=== PATIENT | male | born 1940 | race Caucasian/White ===

== ENCOUNTER 2024-05-05 12:13 | Inpatient (IN) ==
--- NOTE | 2024-04-30 13:20 | Anesthesiology Consultation ---
Date of Service April 30, 2024 Assessment & Plan (1) Encounter for pre-operative examination: - Infectious disease screening: Per assessment on 04/30/24- No known recent infectious disease contacts or current infectious disease symptoms. - ASA/Plavix instructions per surgeon/prescriber - PCP visit (04/29/24): "Patient is medically cleared for intended procedure" - Patient acceptable risk for surgery pending upcoming cardiology visit ([facility], appt 05/04). Chart Review Chart Review: Patient NOT seen in Pre Admission Testing History Surgery Operation Date: 05/05/24 13:25 Proposed Procedures p L3-L4 Decompression and Fusion with Spinal Cord Monitoring - Guanaco Leung, Height/Weight Height: 5 ft 9.5 in Weight: 69.853 kg Allergies Allergy/AdvReac Type Severity Reaction Status Date / Time No Known Allergies Allergy Verified 04/30/24 11:40 Medications Home Medications Medication Instructions Recorded Confirmed Last Taken ascorbic acid (vitamin C) 500 mg 500 mg PO DAILY 04/30/24 04/30/24 Unknown chewable tablet aspirin 81 mg tablet 81 mg PO DAILY 04/30/24 04/30/24 Unknown carvedilol 25 mg tablet 25 mg PO BID 04/30/24 04/30/24 Unknown cholecalciferol (vitamin D3) 125 125 mcg PO BID 04/30/24 04/30/24 Unknown mcg (5,000 unit) tablet (Vitamin D3) clopidogrel 75 mg tablet (Plavix) 75 mg PO DAILY 04/30/24 04/30/24 Unknown cyclobenzaprine 5 mg tablet 5 mg PO TID PRN Muscle Spasms 04/30/24 04/30/24 Unknown lisinopril 20 mg tablet 20 mg PO BID 04/30/24 04/30/24 Unknown melatonin 5 mg tablet 5 mg PO HS 04/30/24 04/30/24 Unknown methylprednisolone 4 mg tablet 4 mg PO DAILY 04/30/24 04/30/24 Unknown [id number]-ch-[id number] 300 mcg-K 60 1 tab PO DAILY 04/30/24 04/30/24 Unknown mcg-lycop 600 mcg-lutein 300 mcg tablet (Centrum Silver Men) peg 400-propylene glycol 0.4 %-0.3 1 drp ophthalmic (eye) TID PRN Dry 04/30/24 04/30/24 Unknown % eye drops (Systane Ultra) Eye(S) pravastatin 20 mg tablet 20 mg PO DAILY 04/30/24 04/30/24 Unknown psyllium husk 3.4 gram/5.4 gram 1 tbsp PO BID 04/30/24 04/30/24 Unknown oral powder (Metamucil) Past Medical History Medical History Dry eyes History of [place] (myocardial infarction) stent x1 (2012) Follows with [facility] History of TIA (transient ischemic attack) Remote hx 10+ years ago Hypertension Lumbar radiculopathy Uses cane Past Surgical History Surgical History History of bilateral cataract extraction History of cardiac catheterization (2012) x1 stent History of colonoscopy History of tonsillectomy History of transurethral resection of prostate Social History Smoking Status: Former smoker Do You Dip or Chew Tobacco: No Smoking End Date: 1976 Hx Alcohol Use: No Hx Substance Use: No substance use type: does not use Lab Results Anesthesia Preop Results Results Anesthesia Widget: WBC 15.53 K/ul (4.8-10.8) H 04/29/24 Hgb 16.1 g/dl (14.0-18.0) 04/29/24 Hct 46.2 % (42.0-52.0) 04/29/24 Plt 335 K/uL (130-400) 04/29/24 Na 131 mmol/L (136-145) L 04/29/24 K 4.0 mmol/L (3.5-5.1) 04/29/24 Cl 97 mmol/L (98-107) L 04/29/24 CO2 30 mmol/L (21-32) 04/29/24 BUN 23 mg/dl (6-23) 04/29/24 Creat 0.67 mg/dl (0.6-1.4) 04/29/24 Glucose Level 127 mg/dl (70-99(Fasting)) H 04/29/24 PT 10.8 Seconds (9.0-12.0) 04/29/24 PTT 28 Seconds (21-31) 04/29/24 INR 1.0 (0.9-1.1) 04/29/24 Urine Color Yellow 04/29/24 Urine Appearance Clear (Clear) 04/29/24 Urine pH 6.0 (4.5-7.5) 04/29/24 Urine Specific [place] 1.021 (1.000-1.030) 04/29/24 Urine Protein Trace (Negative) H 04/29/24 Urine Glucose (UA) Negative (Negative) 04/29/24 Urine Ketones Trace (Negative) H 04/29/24 Urine Blood 1+ (Negative) H 04/29/24 Urine Nitrite Negative (Negative) 04/29/24 Urine Bilirubin Negative (Negative) 04/29/24 Urine Urobilinogen Negative (Negative) 04/29/24 Urine Leukocyte Esterase 1+ (Negative) H 04/29/24 Urine WBC (Auto) 6-10 /hpf (0-5) H 04/29/24 Urine RBC (Auto) >20 /hpf (0-2) H 04/29/24 Urine Hyaline Casts (Auto) 0-2 /lpf (0-2) 04/29/24 Urine Epithelial Cells (Auto) 0-2 /hpf (0-2) 04/29/24 Urine Bacteria (Auto) None Seen (None Seen) 04/29/24 Blood Type O Positive 04/29/24 Antibody Screen NEGATIVE 04/29/24 Testing Laboratory Results Urine culture (04/29/24): no growth (preliminary) Electrocardiogram Date: 04/29/24 SB at 57bpm. "Otherwise normal ECG" Chest X-Ray Date: 04/29/24 FINDINGS: Heart size and pulmonary vasculature are normal. No effusion or consolidation. IMPRESSION: No acute findings.
[~2024-05-05 12:13] MED LIST: DEXAMETHASONE SOD INJ 4 MG/ML VIAL ONE; LIDOCAINE 2% 2 ML VIAL/AMP(20MG/ML) INFIL ONE; ONDANSETRON INJ 2 MG/ML 2 ML VIAL ONE; PROPOFOL IV EMULSION 10 MG/ML 20 ML VIAL IV ONE; ROCURONIUM BROMIDE 10 MG/ML 5 ML VIAL IV ONE; fentaNYL citrate PF 100 MCG/2 ML VIAL ONE
[2024-05-05] MEDS: LACTATED RINGER'S 1,000 ML IV SCH (12:23)
[2024-05-05] MEDS: GABAPENTIN 300 MG CAP PO SCH (12:24)
[2024-05-05] MEDS: CeleBREX 200 MG CAP PO SCH (12:24)
[2024-05-05] MEDS: ACETAMINOPHEN 500 MG TAB PO SCH (12:24)
[2024-05-05] MEDS: LR 60ML/HR IV SCH (12:24)
[2024-05-05] MEDS ORDERED: ePHEDrine sulfate 50 MG/ML AMP IV PRN (12:29)
[2024-05-05] MEDS ORDERED: ATROPINE SULFATE 0.1 MG/ML 10ML SYR IV PRN (12:29)
[2024-05-05] MEDS ORDERED: fentaNYL citrate PF 100 MCG/2 ML VIAL IV PRN (12:29)
[2024-05-05] MEDS ORDERED: ONDANSETRON INJ 2 MG/ML 2 ML VIAL IV PRN ×2 (12:29→16:18)
[2024-05-05] MEDS ORDERED: HYDROmorphone INJ 1 MG/ML SYRINGE IV PRN ×2 (12:29→16:18)
--- NOTE | 2024-05-05 12:45 | History & Physical Bridge Note ---
Date of Service May 05, 2024 History & Physical Bridge Note I have examined the patient, reviewed the History & Physical and in the interval since the performance of the History & Physical I have noted the following changes of clinical significance: no changes noted
--- NOTE | 2024-05-05 12:46 | History & Physical Report ---
Date of Service May 05, 2024 Assessment & Plan (1) Lumbar disc herniation with radiculopathy: Plan: L3-L4 decompression and fusion History of Present Illness Chief Complaint: Back and leg pain Primary Care Provider: TAWANA Montano This is an 83-year-old male who presents with severe back and leg pain after failing course of nonoperative care is here for surgical invention. Allergies Allergy/AdvReac Type Severity Reaction Status Date / Time No Known Allergies Allergy Verified 05/05/24 12:13 Home Medications Medication Instructions Recorded Confirmed Type ascorbic acid (vitamin C) 500 mg 500 mg PO DAILY 04/30/24 05/05/24 History chewable tablet aspirin 81 mg tablet 81 mg PO DAILY 04/30/24 05/05/24 History carvedilol 25 mg tablet 25 mg PO BID 04/30/24 05/05/24 History cholecalciferol (vitamin D3) 125 125 mcg PO BID 04/30/24 05/05/24 History mcg (5,000 unit) tablet (Vitamin D3) clopidogrel 75 mg tablet (Plavix) 75 mg PO DAILY 04/30/24 05/05/24 History cyclobenzaprine 5 mg tablet 5 mg PO TID PRN Muscle Spasms 04/30/24 05/05/24 History lisinopril 20 mg tablet 20 mg PO BID 04/30/24 05/05/24 History melatonin 5 mg tablet 5 mg PO HS 04/30/24 05/05/24 History methylprednisolone 4 mg tablet 4 mg PO DAILY 04/30/24 05/05/24 History [id number]-[id number]-mfham 300 mcg-K 60 1 tab PO DAILY 04/30/24 05/05/24 History mcg-lycop 600 mcg-lutein 300 mcg tablet (Centrum Silver Men) peg 400-propylene glycol 0.4 %-0.3 1 drp ophthalmic (eye) TID PRN Dry 04/30/24 05/05/24 History % eye drops (Systane Ultra) Eye(S) pravastatin 20 mg tablet 20 mg PO DAILY 04/30/24 05/05/24 History psyllium husk 3.4 gram/5.4 gram 1 tbsp PO BID 04/30/24 05/05/24 History oral powder (Metamucil) Past Med/Surg History Problem List (Updated 05/05/24 @ 12:46 by Guanaco M Xochitl, DO) Lumbar disc herniation with radiculopathy Encounter for pre-operative examination Medical History Dry eyes History of [place] (myocardial infarction) stent x1 (2012) Follows with [facility] History of TIA (transient ischemic attack) Remote hx 10+ years ago Hypertension Lumbar radiculopathy Uses cane Surgical History History of bilateral cataract extraction History of cardiac catheterization (2012) x1 stent History of colonoscopy History of tonsillectomy History of transurethral resection of prostate Social History Smoking Status: Former smoker Tobacco Type: Cigarettes Smoking End Date: 1976; Second Hand Exposure: No; Do You Dip or Chew Tobacco: No; Tobacco Cessation Education Requested by Patient: No Hx Alcohol Use: No Hx Substance Use: No Preferred Language: Mohawk Communication Ability: Effective Client Services Manager Required: No Beliefs That Will Affect Care: None Current Living Situation: Spouse Other Information That Helps Us Care for You: No Feels Safe at Home: Yes Safety Concerns: Feels Safe At This Time Assistive Devices: Cane, Glasses and Other Assistive Devices Comment: Upper/Lower Partial Physical Exam Physical Exam: Patient is alert and oriented Heart regular rhythm Lungs clear Results & Data Results & Data Vital Signs (Past 12 Hours) Vital Signs Temp Pulse Resp BP Pulse Ox O2 Del Method 05/05/24 12:07 36.7 C 66 20 171/87 H 98 Room Air
[2024-05-05] MEDS: ceFAZolin 2000MG 2,000 MG/15 ML SYR IV SCH (13:13)
[2024-05-05] MEDS ORDERED: PHENYLEPHRINE 100MCG/ML 5ML SYR ONE (13:31)
[2024-05-05] MEDS ORDERED: SUGAMMADEX SODIUM 200 MG/2 ML VIAL IV ONE (13:49)
[2024-05-05] MEDS: BUPIVACAINE/EPINEPHRINE 0.25% 1:200,000 30 ML VIAL ONE (13:51)
[2024-05-05] MEDS: ceFAZolin 330 MG/ML 1 GM VIAL ONE (13:51)
[2024-05-05] MEDS: FLOSEAL HEMOSTATIC MATRIX 10ML TOP ONE (14:25)
--- NOTE | 2024-05-05 14:28 | Operative Report ---
Post Operative Report Pre & Post Diagnosis Operation Date: 05/05/24 13:25 Pre-Op Diagnosis: #1 lumbar Disc Herniation with Radiculopathy #2 lumbar spondylosis with radiculopathy Post-Op Diagnosis: Same I identified the patient and participated in the time-out.: Yes Procedure Operation Date: 05/05/24 13:25 Actual Procedures #1 lumbar decompression with medial facetectomies foraminotomies excision of herniated foraminal disc L3-L4. #2 posterior spinal fusion L3-L4. #3 placement posterior instrumentation L3-L4 per #4 interbody fusion L3-L4. #5 patient was Spira 13 x 26 mm at L3-L4 per #6 placement locally harvested morselized autograft posterior gutters. #7 placement infuse collagen sponge combined with Koros in the posterior lateral gutters and os design interbody space. #8 application of versa wrap over the exposed dura. Surgeon Guanaco Leung, Business Area Manager Fransisca Richardson Estimated Blood Loss 100 Findings Consistent with Post-Op Diagnosis Specimens None Indications This is an 83-year-old male who presents with severe radiculopathy and incapacitating pain. Of failing course of nonoperative care is here for eve gical invention. Description of Procedure Patient was met with identified informed consent obtained. Patient was then taken to the operative suite underwent intubation placed in a prone position on the Sánchez table atop the Brayden frame. All bony promises well-padded I suspected to ensure no external precipice spinal. This point lumbar spine is prepped and draped no sterile fashion. Sharp dissection with assistance of Bovie cautery form down to and exposing the lamina transverse processes of L3- L4. From a caudal cephalad fashion a laminectomy of L3 was performed including bilateral medial facetectomies with complete facetectomy on the left to expose a markedly compressed exiting L3 nerve root with discal fragments both in the foramen and external to the foramen causing severe neural compression. They removed in their entirety. Pedicle screws then placed in L3-L4 bilaterally with assistance of fluoroscopy the process lucille placed. By way of transforaminal approach on the left a complete discectomy of L3-L4 was performed endplates guided to subcortical main bone and a 13 x 26 mm spiral cage filled with os design bone graft tapped in position. The rods were then locked in a final position bilaterally. The transverse processes of L3-L4 burred to subcortical waiting bone. Infuse collagen sponge combined with Koros bone graft and local autograft placed in the posterior lateral gutters. Versa wrap placed over the exposed dura. 15 round XAVIER drain inserted. The incision was then closed with 1 Vicryl the fascia 2-0 Vicryl subcutaneously and 4 Monocryl for final skin closure. Steri-Strips and sterile dressing placed. Patient waken taken the PACU stable condition. Please note spinal cord monitoring visualized at the pr ocedure no changes noted. Fransisca Richardson was present at the entire surgery and while the patient positioning complex portion of the surgery and final skin closure. I attest to the content of the Intraoperative Record and any orders documented therein. Any exceptions are noted below.
--- NOTE | 2024-05-05 14:46 | Fluoroscopy Report ---
FL lumbar spine 2-3V CLINICAL HISTORY: L3-L4 DECOMPRESSION AND FUSION WITH INTERBODY COMPARISON STUDY: None FLUOROSCOPY TIME: 21 seconds FLUOROSCOPY IMAGES: 3 EXPOSURE DOSE: 11 mGy FINDINGS: Fluoroscopy was provided for L3-4 decompression and metallic fusion. IMPRESSION: Intraoperative fluoroscopy. ACT 112: Negative or not required by law. Electronically signed by: Kian Oviedo M.D. 05/05/2024 2:45 PM
--- NOTE | 2024-05-05 15:35 | Anesthesiology Progress Note ---
Date of Service May 05, 2024 Anesthesia Post Procedure Vital Signs Vital Signs: Temp Pulse Pulse Resp BP Pulse Ox O2 Del Method 05/05/24 15:30 36.4 C L 54 L 15 163/81 H 97 Room Air 05/05/24 15:20 58 L 15 150/68 H 98 Room Air 05/05/24 15:10 58 L 14 166/64 H 97 Room Air 05/05/24 15:00 57 L 19 143/70 H 98 Oxymask 05/05/24 14:50 57 L 18 146/65 H 98 Oxymask 05/05/24 14:42 36.1 C L 52 L 19 133/62 98 Oxymask 05/05/24 12:07 36.7 C 66 20 171/87 H 98 Room Air O2 Flow Rate 05/05/24 15:30 05/05/24 15:20 05/05/24 15:10 05/05/24 15:00 4 05/05/24 14:50 6 05/05/24 14:42 6 05/05/24 12:07 Pain Intensity Left Back: Pain Intensity: 5 Left Knee: Pain Intensity: 2 Transfer of Care Handoff Completed per policy Notes Mental Status: alert / awake / arousable Patient Amnestic to Procedure: Yes Nausea / Vomiting: adequately controlled Pain: adequately controlled Airway Patency, RR, SpO2: stable & adequate BP & HR: stable & adequate Hydration State: stable & adequate Anesthetic Complications: no major complications apparent and Pt Satisfied with anesthetic care
[2024-05-05] MEDS ORDERED: FAMOTIDINE 20 MG TAB PO PRN (16:18)
[2024-05-05] MEDS ORDERED: SOD PHOSPHATE/SOD BIPHOSPHATE ENEMA 132 ML BTL PR PRN (16:18)
[2024-05-05] MEDS ORDERED: DO NOT ADMINISTER PNEUMOCOCCAL VACCINE PRN (16:18)
[2024-05-05] MEDS ORDERED: LORazepam 2 MG/1 ML VIAL IV PRN (16:18)
[2024-05-05] MEDS ORDERED: oxyCODONE HCL IR 5 MG TAB (IMMEDIATE RELEASE) PO PRN (16:18)
[2024-05-05] MEDS ORDERED: NALOXONE HCL 0.4 MG/1 ML VIAL/CARP IV PRN (16:18)
[2024-05-05] MEDS ORDERED: HYDROmorphone INJ 0.5 MG/0.5 ML SYR IV PRN (16:18)
[2024-05-05] MEDS ORDERED: ALUMINUM/MAGNESIUM SUSP 30 ML UDC PO PRN (16:18)
[2024-05-05] MEDS ORDERED: DO NOT ADMINISTER FLU VACCINE PRN (16:18)
[2024-05-05] MEDS ORDERED: diphenhydrAMINE Capsule 25 MG CAP PO PRN (16:18)
[2024-05-05] MEDS ORDERED: LORazepam 0.5 MG TAB PO PRN (16:18)
[2024-05-05] MEDS ORDERED: MAGNESIUM HYDROXIDE SUSP 30 ML UDC PO PRN (16:18)
[2024-05-05] MEDS ORDERED: ONDANSETRON 4 MG OD TAB PO PRN (16:18)
[2024-05-05] MEDS ORDERED: METOCLOPRAMIDE HCL INJ 5 MG/ML 2 ML VIAL IV PRN (16:18)
[2024-05-05] MEDS ORDERED: PROMETHAZINE 12.5 MG/50.5 ML BAG IV PRN (16:18)
[2024-05-05] MEDS ORDERED: hydrOXYzine HCl 25 MG TAB PO PRN (16:18)
[2024-05-05] MEDS ORDERED: ACETAMINOPHEN 1,000 MG/100 ML VIAL IV PRN (16:18)
[2024-05-05] MEDS ORDERED: bisacodyL 10 MG SUPP PR PRN (16:18)
--- NOTE | 2024-05-05 19:08 | Consultation ---
Date of Consultation May 05, 2024 Assessment & Plan (1) S/P spinal surgery: (2) Lumbar disc herniation with radiculopathy: Post op day# 0 S/P decompression and fusion L3-L4 by Dr Xochitl CASILLAS# 100ml Pain management per ortho Wound management per ortho PT/OT as appropriate DVT prophylaxis per ortho Incentive spirometry Monitor H&H for acute blood loss anemia; pre-op Hgb: 16 (3) History of CAD (coronary artery disease): S/P stent Denies chest pain, shortness of breath Aspirin and Plavix have been on hold preop, resume when able per ortho spine Continue carvedilol, pravastatin Plan to resume lisinopril tomorrow Follows with Cardiology (4) History of TIA (transient ischemic attack): Aspirin and Plavix have been on hold preop. Resume when able per ortho spine Continue carvedilol, pravastatin (5) Hypertension: Plan to resume lisinopril tomorrow Continue carvedilol (6) BPH (benign prostatic hyperplasia): 04/27/2024 and Lopez catheter was placed secondary to urinary retention Seen by [facility] neurology on 05/04/2024 and it was recommended Lopez catheter stay in place for now until follow-up with urology. Patient was started on tamsulosin DVT Prophylaxis SCDs Disposition per primary service Follows with Roro Landis PA for routine care Pt was seen and care coordinated with Dr Davila. See addendum I spent a total of 40 minutes reviewing notes, outpatient records, labs, medication, coordinating, documenting and providing care for this patient excluding time spent in the performance of separately billed services and excluding time spent by another provider/QHP. Thank you for this consultation. We will follow the patient with you during their hospital stay. You can reach a member of the [facility] Hospitalist Team 02/09 via [facility] Supervising Physician Co-Signing Physician Notes I have seen and discussed the case with the collaborating advanced practitioner. I agree with the above H&P. I have reviewed and confirmed the patients medical history, the findings on physical examination, and the patients diagnosis and treatment plan with [facility] and agree with the information documented. Mr. Mcadams is s/p decompression and fusion L3-L4 by Dr Leung and doing well. Plan to follow HH and BMP. Will need to continue lopez given concerns for urina ry retention prior to procedure. rest of plan as above I spent a total of 10 minutes coordinating, documenting, and providing care for this patient excluding time spent in the performance of separately billed services. All of the aforementioned completed outside of collaborating with the assigned advanced practitioner for a full treatment plan. I have reviewed the advanced practitioner's documentation, and I agree with, and take responsibility for the plan of care History of Present Illness Requesting Physician: Dr Leung Reason for Consultation: Post op medical management Attending Physician: Guanaco Leung, DO History of Present Illness Patient is 83 year old male with PMH CAD, cardiomyopathy reported to be resolved on 2009 echo per [facility] cardiology notes, TIA, mitral valve prolapse, HTN, BPH seen in medical consultation s/p decompression and fusion L3-L4 today by Dr. Leung. Postop patient reports is doing well. Reports back pain and leg pain is controlled. Has Lopez catheter in place. Denies fever/chills, N/V/D/C, DILL, dizziness, vision changes, neck pain, CP, SOB, palpitations, cough, chokin g, rhinorrhea, abdominal pain, extremity weakness, extremity edema, rashes. Per chart review. Patient had episode of urinary retention requiring ER visit at [facility] [address] [facility] on 04/27/2024 and Lopez catheter was placed. Per outpatient chart review patient seen by [facility] [address] [facility] neurology on 05/04/2024 and it was recommended Lopez catheter stay in place for now until follow-up with urology. Patient was started on tamsulosin. Allergies Allergy/AdvReac Type Severity Reaction Status Date / Time No Known Allergies Allergy Verified 05/05/24 12:13 Home Medications Medication Instructions Recorded Confirmed Type ascorbic acid (vitamin C) 500 mg 500 mg PO DAILY 04/30/24 05/05/24 History chewable tablet aspirin 81 mg tablet 81 mg PO DAILY 04/30/24 05/05/24 History carvedilol 25 mg tablet 25 mg PO BID 04/30/24 05/05/24 History cholecalciferol (vitamin D3) 125 125 mcg PO BID 04/30/24 05/05/24 History mcg (5,000 unit) tablet (Vitamin D3) clopidogrel 75 mg tablet (Plavix) 75 mg PO DAILY 04/30/24 05/05/24 History cyclobenzaprine 5 mg tablet 5 mg PO TID PRN Muscle Spasms 04/30/24 05/05/24 History lisinopril 20 mg tablet 20 mg PO BID 04/30/24 05/05/24 History melatonin 5 mg tablet 5 mg PO HS 04/30/24 05/05/24 History methylprednisolone 4 mg tablet 4 mg PO DAILY 04/30/24 05/05/24 History yrwpvlex-gz-tghrt 300 mcg-K 60 1 tab PO DAILY 04/30/24 05/05/24 History mcg-lycop 600 mcg-lutein 300 mcg tablet (Centrum Silver Men) peg 400-propylene glycol 0.4 %-0.3 1 drp ophthalmic (eye) TID PRN Dry 04/30/24 05/05/24 History % eye drops (Systane Ultra) Eye(S) pravastatin 20 mg tablet 20 mg PO DAILY 04/30/24 05/05/24 History psyllium husk 3.4 gram/5.4 gram 1 tbsp PO BID 04/30/24 05/05/24 History oral powder (Metamucil) oxycodone 5 mg tablet 5 mg PO Q6H PRN pain #30 tabs 05/05/24 Rx tamsulosin 0.4 mg capsule 0.4 mg PO DAILY 05/05/24 05/05/24 History tramadol 50 mg tablet 50 mg PO Q6H PRN pain, moderate 05/05/24 Rx #30 tabs Patient History Medical History (Updated 05/05/24 @ 20:18 by Virginia Mata PA-C) BPH (benign prostatic hyperplasia) History of CAD (coronary artery disease) Dry eyes History of TIA (transient ischemic attack) Remote hx 10+ years ago Lumbar radiculopathy Uses cane Hypertension History of [place] (myocardial infarction) stent x1 (2012) Follows with [facility] Surgical History (Updated 05/05/24 @ 22:30 by Virginia Mata PA-C) History of bilateral cataract extraction History of tonsillectomy History of transurethral resection of prostate History of colonoscopy History of cardiac catheterization (2012) x1 stent Social History Smoking Status: Former smoker Tobacco Type: Cigarettes Smoking End Date: 1977; Second Hand Exposure: No; Do You Dip or Chew Tobacco: No; Tobacco Cessation Education Requested by Patient: No Hx Alcohol Use: No Hx Substance Use: No Preferred Language: Vietnamese Communication Ability: Effective Wick And Base Assembler Required: No Beliefs That Will Affect Care: None Current Living Situation: Spouse Other Information That Helps Us Care for You: No Feels Safe at Home: Yes Safety Concerns: Feels Safe At This Time Assistive Devices: Cane, Glasses and Other Assistive Devices Comment: Upper/Lower Partial Review of Systems Review of Systems: All systems reviewed & are unremarkable except as noted in HPI & below Physical Exam Physical Exam: General: no distress, WDWN Head: normocephalic, atraumatic Eyes: conjunctiva non-injected, anicteric ENT: normal inspection external ears, nose, mucous membranes moist Neck: supple, trachea midline Lungs: clear, no respiratory distress, no wheezing/rhonchi/rales CV: RRR, no pretibial edema Abd: normal BS, soft, non-tender Back: surgical dressing in place. XAVIER drain in place with serosanguineous drainage, bilateral pedal pushes and pulls intact, sensation to light touch intact Ext: no cyanosis, no calf tenderness Neuro: A&O x 3, no focal deficits noted, normal affect Skin: warm, dry Results & Data Vital Signs (Past 12 Hours) Vital Signs Temp Pulse Pulse Resp BP BP Pulse Ox 05/05/24 18:08 05/05/24 18:04 36.5 C 62 16 155/70 H 95 05/05/24 17:00 36.4 C L 60 16 158/76 H 92 05/05/24 16:30 36.3 C L 57 L 16 174/74 H 96 05/05/24 16:00 36.7 C 56 L 20 161/73 H 98 05/05/24 15:45 57 L 15 147/83 H 97 05/05/24 15:30 36.4 C L 54 L 15 163/81 H 97 05/05/24 15:20 58 L 15 150/68 H 98 05/05/24 15:10 58 L 14 166/64 H 97 05/05/24 15:00 57 L 19 143/70 H 98 05/05/24 14:50 57 L 18 146/65 H 98 05/05/24 14:42 36.1 C L 52 L 19 133/62 98 05/05/24 12:07 36.7 C 66 20 171/87 H 98 O2 Del Method O2 Flow Rate 05/05/24 18:08 Room Air 05/05/24 18:04 Room Air 05/05/24 17:00 Room Air 05/05/24 16:30 Room Air 05/05/24 16:00 Room Air 05/05/24 15:45 Room Air 05/05/24 15:30 Room Air 05/05/24 15:20 Room Air 05/05/24 15:10 Room Air 05/05/24 15:00 Oxymask 4 05/05/24 14:50 Oxymask 6 05/05/24 14:42 Oxymask 6 05/05/24 12:07 Room Air
[2024-05-05] MEDS: carvediloL 25 MG TAB PO SCH (20:21)
[2024-05-05] MEDS: CHOLECALCIFEROL 125 MCG (5,000 UNITS) TAB PO SCH (20:21)
[2024-05-05] MEDS: MELATONIN 3 MG TAB PO SCH (20:21)
[2024-05-05] MEDS: ceFAZolin 1000MG 1,000 MG/7.5 ML SYR IV SCH (20:21)
[2024-05-05] MEDS: COUGH DROP (SUGAR FREE) LOZ 24 LOZ/1 BOX BUCCAL STA (20:21)
[2024-05-05] MEDS: DOCUSATE SODIUM/SENNA 50/8.6MG TAB PO SCH (20:21)
[2024-05-05] MEDS: lisinopril 20 MG TAB PO SCH (20:24)
[2024-05-05] MEDS ORDERED: lisinopril 20 MG TAB PO SCH (21:00)
[2024-05-06] MEDS: traMADol HCL 50 MG TABLET PO PRN (03:44)
[2024-05-06] MEDS: POLYETHYLENE (MIRALAX) 17 GM PACK PO SCH (05:30)
[2024-05-06 08:07] LABS: Basophils # (auto) 0.03 K/uL (0.00-0.20); Basophils % (auto) 0.2 %; Hematocrit (blood only) 41.1 % (42.0-52.0); Hemoglobin 14.5 g/dl (14.0-18.0); Immature Granulocytes # (auto) 0.15 K/uL (0.01-0.20); Immature Granulocytes % (auto) 0.8 %; Lymphocytes % (auto) 11.1 %; Mean Corpuscular Hemoglobin 31.1 pg (25.0-34.0); Mean Corpuscular Hgb Conc 35.3 g/dL (32.0-36.0); Mean Corpuscular Volume 88.2 fL (80.0-100.0); Mean Platelet Volume 9.1 fL (9.4-12.4); Monocytes # (auto) 2.08 K/uL (0.11-0.59); Monocytes % (auto) 11.5 %; Neutrophils # (auto) 13.79 K/uL (1.40-6.50); Neutrophils % (auto) 76.4 %; Platelet Count 303 K/uL (130-400); RDW Standard Deviation 38.7 fL (36.4-46.3); Red Blood Count 4.66 M/uL (4.70-6.10); White Blood Count 18.05 K/ul (4.8-10.8)
[2024-05-06 08:29] LABS: BUN Creatinine Ratio 23.9 (10-20); Calcium 8.9 mg/dl (8.6-10.3); Creatinine Clr Calc Pharmacy 80.4 ml/min; Potassium 5.4 mmol/L (3.5-5.1)
--- NOTE | 2024-05-06 08:37 | Orthopedic Progress Note ---
Date of Service May 06, 2024 Assessment & Plan (1) Lumbar disc herniation with radiculopathy: Plan: Noé is postoperative day 1 status post lumbar decompression and fusion L3-4. Will start physical therapy today. Patient saw urology for urinary retention the day before his surgery. Plan is to maintain Crouch until follow-up in 2 to 3 weeks and then do a voiding trial. Will work on aggressive bowel regimen. DVT prophylaxis is in the form teds and SCDs. Anticipate discharge over the next several days Admission and Anticipated Discharge Date Admission Date: May 05, 2024 Subjective Noé is postoperative day 1 status post lumbar decompression and fusion of L3-4. Left leg pain has greatly improved. Has some hypersensitivity mostly around the left knee. XAVIER drain output last shift was 30 cc. Crouch catheter intact. Review of Systems Review of Systems: All systems reviewed & are unremarkable except as noted in HPI & below Physical Exam Physical Exam: He is laying in bed in no acute distress Alert and oriented x 3 Left leg weakness is significantly improved compared to preoperative status. Hypersensitive to palpation around the left anterior knee lumbar dressing lumbar is clean dry intact with functioning XAVIER drain Results & Data Vital Signs (Past 12 Hours) Vital Signs Temp Pulse Resp BP Pulse Ox O2 Del Method 05/06/24 07:59 36.4 C L 66 16 170/82 H 97 Room Air 05/06/24 03:41 36.6 C 67 16 147/68 H 96 Room Air 05/06/24 00:00 36.9 C 64 16 151/74 H 96 Room Air
[2024-05-06] MEDS: ASPIRIN 81 MG ECTAB PO SCH (09:19)
[2024-05-06] MEDS: PRAVASTATIN SOD 20 MG TAB PO SCH (09:21)
[2024-05-06] MEDS: dexAMETHasone 6 MG in SYRINGE 0 ML IV SCH (09:21)
[2024-05-06] MEDS: TAMSULOSIN HCL 0.4 MG CAP PO SCH (09:22)
--- NOTE | 2024-05-06 12:49 | Hospitalist Progress Note ---
Date of Service May 06, 2024 Assessment & Plan (1) S/P spinal surgery: (2) Lumbar disc herniation with radiculopathy: Plan: Post op day# 1 S/P decompression and fusion L3-L4 by Dr Xochitl CASILLAS# 100ml Pain management per ortho Wound management per ortho Continue PT/OT DVT prophylaxis per ortho Incentive spirometry Monitor H&H for acute blood loss anemia; pre-op Hgb: 16 Post-op Hb of 14.5g/dl (3) History of CAD (coronary artery disease): Plan: S/P stent Denies chest pain, shortness of breath Aspirin and Plavix have been on hold preop, resume when able per ortho spine Continue carvedilol, pravastatin Hold lisinopril for now Follows with Cardiology (4) History of TIA (transient ischemic attack): Plan: Aspirin and Plavix have been on hold preop. Resume when able per ortho spine Continue carvedilol, pravastatin (5) Hypertension: Plan: Hold lisinopril for today Continue carvedilol (6) BPH (benign prostatic hyperplasia): Plan: 04/27/2024 and Crouch catheter was placed secondary to urinary retention Seen by [facility] urology on 05/04/2024 and it was recommended Crouch catheter stay in place for now until follow-up with urology. Patient was started on tamsulosin DVT Prophylaxis SCDs Disposition per primary service Follows with Roro Landis PA for routine care Please note the above document was generated using voice recognition software. It may contain grammatical, syntax or spelling errors. Any formal questions or concerns about the content, text or information contained within the body of this dictation should be directly addressed to the provider for clarification Admission and Anticipated Discharge Date Admission Date: May 05, 2024 Subjective Patient seen and examined at bedside. He is sitting up on the chair; reports no pain or discomfort. Vital signs are stable and he is saturating well on room air. Review of Systems Review of Systems: All systems reviewed & are unremarkable except as noted in Subjective Physical Exam Physical Exam: Constitutional: Alert oriented x 3; not in distress. Respiratory: normal respiratory effort, lungs clear to auscultation, no wheeze, rales, rhonchi. Normal insp/exp effort, no accessory muscle use Cardiovascular: RRR, no murmur, no edema Vessels: no JVD or carotid bruit Chest: normal inspection of chest Abdomen: normal bowel sounds, soft, nontender, no hepatosplenomegaly Musculoskeletal: dressing in place; clean/dry/intact Neurologic: PERRL, EOMI, accommodation nl, no face palsy, no dysarthria CN's II- XI intact bilaterally and moves all extremities Psychiatric: A+Ox3, euthymic affect Results & Data Results & Data Vital Signs (Past 12 Hours) Vital Signs Temp Pulse Pulse Resp BP Pulse Ox O2 Del Method 05/06/24 11:40 36.3 C L 74 16 104/63 94 Room Air 05/06/24 09:37 115/71 05/06/24 08:00 Room Air 05/06/24 07:59 36.4 C L 66 16 170/82 H 97 Room Air 05/06/24 03:41 36.6 C 67 16 147/68 H 96 Room Air
[2024-05-06] MEDS: SODIUM ZIRCONIUM CYCLOSILICATE 10 GM PACKET PO ONE (15:39)
[2024-05-07 08:25] LABS: BUN Creatinine Ratio 25.3 (10-20); Calcium 8.6 mg/dl (8.6-10.3); Creatinine Clr Calc Pharmacy 76.2 ml/min; Potassium 4.1 mmol/L (3.5-5.1)
--- NOTE | 2024-05-07 09:54 | Discharge Summary ---
Date of Service May 07, 2024 Admission HPI Per Admitting Provider This is an 83-year-old male who presents with severe back and leg pain after failing course of nonoperative care is here for surgical invention. Principal Diagnosis Lumbar discrimination with radiculopathy Discharge Data Allergies Allergy/AdvReac Type Severity Reaction Status Date / Time No Known Allergies Allergy Verified 05/05/24 12:13 Consultations 05/05/24 16:18 Consult Hospitalist Routine Procedures Performed Operation Date: 05/05/24 13:25 Actual Procedures p L3-L4 Decompression and Fusion, Spinal Cord Monitoring(Not Applicable) - Guanaco Leung DO Ordered Studies 05/05/24 13:25 FL lumbar spine 2-3V Routine Hospital Course (1) Lumbar disc herniation with radiculopathy: Patient with lumbar decompression and fusion tolerated as well as taken to orthopedic for postoperative. Postoperatively he progressed appropriate. Marked improvement of his leg pain. Extra strength testing. XAVIER drain decreasing. Pain control. Subsidy discharged home. Discharge orders instructions are on the chart for further review. Total Time Total Time Spent Total Time Spent (In Minutes): 20 minutes Discharge Plan Discharge Items Patient Disposition: Home - Self-Care Reason For Visit: Foraminal Stenosis Lumbar Region Discharge Diagnosis: Lumbar disc herniation with radiculopathy Activity: As commented below Non-emergency contact: Primary Care Provider Call non-emergency contact if: you have any medication questions Follow-up/Referrals: Indu Perkins CRNP [Primary Care Provider] - Diet: Regular Addtl Attending Provider Instructions: ACTIVITY RECOMMENDATIONS: SELF CARE INSTRUCTIONS AFTER THORACIC/LUMBAR FUSIONS 1. You may walk to your tolerance. It is good exercise for your legs and back. Expect some back and intermittent leg aches and pains. 2. You may perform "counter-top" level activities (make a sandwich, andrew with a project, etc.). 3. No bending or lifting of more than 10 pounds or back twisting of any nature (roll like a log when turning in bed). 4. You may ride in a car for 20-30 minutes at a time. No driving until after your first visit with your doctor. 5. Frequent changes of position and restricting sitting to 30 minutes at a time will help limit the amount of back spasms and stiffness you may experience. 6. You may discontinue the use of ambulatory aids (cane, crutches, etc.) once your strength and confidence allow. 7. You may soft top installer the shower and let water strike your incision when you arrive home at least once daily. Do not take a tub bath, sit in a hot tub or go into a swimming pool until after your first recheck in the office. 8. You may resume previous diet. SPECIAL CARE INSTRUCTIONS: VERY IMPORTANT TO READ AND REVIEW A. Your surgical incision has been closed with a cosmetic suture under the skin that will dissolve in about 6 weeks. In 14 days, you can use a pair of clean scissors and cut the suture that is left outside of the skin at the ends of your incision. 1. The small skin tapes can be removed 7 days after surgery if they have not fallen off by that point. 2. You may keep the wound open to air as much as possible to promote healing after post-op day number 5 unless told otherwise by your doctor. 3. If you think the wound looks like it is becoming infected (redness or worsening drainage) and/or you are experiencing fever, chill or worsening back pain and muscle spasms, contact the office so that we may evaluate you as soon as possible. B. Complications are uncommon, but please contact us if you have any signs or symptoms of: 1. wound infection (fever higher than 102.5 degrees F, redness, separation of wound, drainage, or increasing pain from the incision) 2. blood clots in legs (pain, swelling, redness and warmth in legs) 3. urinary tract infection (fever higher than 102.5 degrees F, burning upon urination or increased frequency of urination) 4. nerve problems (inability to walk on your toes or heels, numbness, loss of bowel or bladder control) 5. any other symptoms that concern you C. Please call the office at if you have any concerns or questions about your operation or recovery. D. No smoking! Smoking drastically decreases the chance of a solid fusion. E. Do not take any anti-inflammatory medications (Indocin, Advil, Motrin, Aspirin, Naprosyn, etc.) as these may inhibit the chance of a solid fusion. Tylenol is okay to take for pain. MANAGING PAIN AFTER SPINAL SURGERY 1. Narcotic medication is intended for short-term use and will be provided for surgical pain. Surgical pain usually lasts for a period of 4-6 weeks. Narcotic medication includes Percocet, Vicodin, Darvocet, Tylenol #3 or Lortab. 2. Longer-term pain is more appropriately treated with non-narcotic medication such as Tylenol ES. 3. Muscle spasm is not appropriately treated with narcotics. Muscle relaxers such as Soma, Flexeril or Skelaxin can be used along with Tylenol ES. 4. Remember that we all live with some "aches and pains". This is not unusual or uncommon after an injury or as we get older. a. Back pain is expected and may include muscle spasms for 4 to 6 weeks after surgery. The pain should gradually improve. If the pain worsens for no apparent reason, please contact the office. b. Intermittent leg pain may also be experienced and should not be concerned about unless it worsens for no apparent reason. If so, please contact the office. 5. We will provide appropriate medication within the normal guidelines of their prescribed use. We will also be very cautious and aware of potential abuse and extended duration of patients' medication needs. a. Pain medications are for your comfort and to assist with sleep and rest so that the tissue can heal. They are not provided in order to return to normal activity and should not be used through the day. To do so or worsening pain at night can result from ongoing tissue damage and development of tolerance to the prescribed medicine. 6. Please allow 2-3 days to process refills. Prescriptions will not be mailed but must be picked up at the office. FOLLOW UP VISIT: Keep your scheduled follow-up appointment. Any questions, please call the office at . Pending Studies at Discharge: No Stand-Alone Forms: [facility], Smoking Cessation Medications and DC Order Prescriptions: New tramadol 50 mg tablet 50 mg PO Q6H PRN (Reason: pain, moderate) Qty: 30 0RF oxycodone 5 mg tablet 5 mg PO Q6H PRN (Reason: pain) Qty: 30 0RF Continued carvedilol 25 mg Tablet 25 mg PO BID Rx Instructions: must administer with a meal/food lisinopril 20 mg Tablet 20 mg PO BID clopidogrel [Plavix] 75 mg Tablet 75 mg PO DAILY Patient Comments: "I was told to stop it yesterday 04/29/24" ascorbic acid (vitamin C) [Vitamin C-Ivelisse Hips-Acerola] 500 mg Tablet,Chewable 500 mg PO DAILY aspirin 81 mg Tablet 81 mg PO DAILY pravastatin 20 mg Tablet 20 mg PO DAILY cyclobenzaprine 5 mg Tablet 5 mg PO TID PRN (Reason: Muscle Spasms) Systane Ultra 0.4-0.3 % Drops 1 drp OPHTHALMIC (EYE) TID PRN (Reason: Dry Eye(S)) melatonin 5 mg Tablet 5 mg PO HS cholecalciferol (vitamin D3) [Vitamin D3] 125 mcg (5,000 unit) Tablet 125 mcg PO BID Centrum Silver Men 375-31-587-300 mcg Tablet 1 tab PO DAILY Metamucil 3.4 gram/5.4 gram Powder 1 tbsp PO BID Rx Instructions: mix into at least 8 oz of water or juice before administering Discontinued methylprednisolone 4 mg Tablet 4 mg PO DAILY Patient Comments: "to finish 05/01/24" Rx Instructions: Taper Dose No Action tamsulosin 0.4 mg capsule 0.4 mg PO DAILY Discharge Orders: Discharge Order (Routine); Ordered 05/07/24 Ordered By: Guanaco Leugn Admission Data Admit Date/Time: 05/05/24 14:31 Attending Provider: Guanaco Leung Admit Provider: Guanaco Leung Primary Care Provider: Indu Perkins Other Providers: Neelam Durand
--- NOTE | 2024-05-07 15:00 | Hospitalist Progress Note ---
Date of Service May 07, 2024 Assessment & Plan (1) S/P spinal surgery: (2) Lumbar disc herniation with radiculopathy: Plan: Post op day# 2 S/P decompression and fusion L3-L4 by Dr Xochitl CASILLAS# 100ml Pain management per ortho Wound management per ortho Continue PT/OT DVT prophylaxis per ortho Incentive spirometry Monitor H&H for acute blood loss anemia; pre-op Hgb: 16 Post-op Hb of 14.5g/dl (3) History of CAD (coronary artery disease): Plan: S/P stent Denies chest pain, shortness of breath Aspirin and Plavix have been on hold preop, resume when able per ortho spine Continue carvedilol, pravastatin Hold lisinopril for now Follows with Cardiology (4) History of TIA (transient ischemic attack): Plan: Aspirin and Plavix have been on hold preop. Resume when able per ortho spine Continue carvedilol, pravastatin (5) Hypertension: Plan: Hold lisinopril Continue carvedilol (6) BPH (benign prostatic hyperplasia): Plan: 04/27/2024 and Crouch catheter was placed secondary to urinary retention Seen by [facility] urology on 05/04/2024 and it was recommended Crouch catheter stay in place for now until follow-up with urology. Patient was started on tamsulosin DVT Prophylaxis SCDs Disposition per primary service Follows with Roro Landis PA for routine care Please note the above document was generated using voice recognition software. It may contain grammatical, syntax or spelling errors. Any formal questions or concerns about the content, text or information contained within the body of this dictation should be directly addressed to the provider for clarification Admission and Anticipated Discharge Date Admission Date: May 05, 2024 Subjective Patient seen and examined at bedside. Comfortable; not in distress. Denies fever, chills, chest pain, shortness of breath, abdominal pain or urinary symptoms. Review of Systems Review of Systems: All systems reviewed & are unremarkable except as noted in Subjective Physical Exam Physical Exam: Constitutional: Alert oriented x 3; not in distress. Respiratory: normal respiratory effort, lungs clear to auscultation, no wheeze, rales, rhonchi. Normal insp/exp effort, no accessory muscle use Cardiovascular: RRR, no murmur, no edema Vessels: no JVD or carotid bruit Chest: normal inspection of chest Abdomen: normal bowel sounds, soft, nontender, no hepatosplenomegaly Musculoskeletal: dressing in place; clean/dry/intact Neurologic: PERRL, EOMI, accommodation nl, no face palsy, no dysarthria CN's II- XI intact bilaterally and moves all extremities Psychiatric: A+Ox3, euthymic affect Results & Data Results & Data Vital Signs (Past 12 Hours) Vital Signs Temp Pulse Resp BP Pulse Ox O2 Del Method 05/07/24 07:55 36.3 C L 68 16 148/78 H 94 Room Air 05/07/24 07:30 Room Air
[2024-05-08] MEDS: ACETAMINOPHEN 500 MG TAB PO PRN (08:51)
--- NOTE | 2024-05-08 10:09 | Hospitalist Progress Note ---
Date of Service May 08, 2024 Assessment & Plan (1) S/P spinal surgery: (2) Lumbar disc herniation with radiculopathy: Plan: S/P decompression and fusion L3-L4 by Dr Leung on 05/05/2024 EBL# 100ml Pain management per ortho Wound management per ortho Continue PT/OT DVT prophylaxis per ortho Incentive spirometry Monitor H&H for acute blood loss anemia; pre-op Hgb: 16 Post-op Hb of 14.5g/dl Delirium Patient has sundowning and episode of delirium on May 07 and Could likely be related with medication, recent surgery, steroids Patient also had not have bowel movement since surgery Recommend bowel regimen, frequent reorientation Delirium precautions Hydroxyzine, Ativan, IV opioids discontinued CT head without contrast obtained; no acute finding Obtain urine culture, BNP and CBC (3) History of CAD (coronary artery disease): Plan: S/P stent Denies chest pain, shortness of breath Aspirin and Plavix have been on hold preop, resume when able per ortho spine Continue carvedilol, pravastatin Hold lisinopril for now Follows with Cardiology (4) History of TIA (transient ischemic attack): Plan: Aspirin and Plavix have been on hold preop. Resume when able per ortho spine Continue carvedilol, pravastatin (5) Hypertension: Plan: Hold lisinopril Continue carvedilol (6) BPH (benign prostatic hyperplasia): Plan: 04/27/2024 and Crouch catheter was placed secondary to urinary retention Seen by [facility] urology on 05/04/2024 and it was recommended Crouch catheter stay in place for now until follow-up with urology. Patient was started on tamsulosin DVT Prophylaxis SCDs Disposition per primary service Follows with Roro Landis PA for routine care Please note the above document was generated using voice recognition software. It may contain grammatical, syntax or spelling errors. Any formal questions or concerns about the content, text or information contained within the body of this dictation should be directly addressed to the provider for clarification Admission and Anticipated Discharge Date Admission Date: May 05, 2024 Subjective Patient appears to be delirious in the morning; responding to internal stimuli. Is only oriented to self Vital signs remained stable Review of Systems Review of Systems: Unobtainable due to mental health condition Physical Exam Physical Exam: Constitutional: disoriented; oriented to self; not in distress. Respiratory: normal respiratory effort, lungs clear to auscultation, no wheeze, rales, rhonchi. Normal insp/exp effort, no accessory muscle use Cardiovascular: RRR, no murmur, no edema Vessels: no JVD or carotid bruit Chest: normal inspection of chest Abdomen: normal bowel sounds, soft, nontender, no hepatosplenomegaly Musculoskeletal: dressing in place; clean/dry/intact Neurologic: PERRL, EOMI, accommodation nl, no face palsy, no dysarthria ; grossly moves all extremities Results & Data Results & Data Vital Signs (Past 12 Hours) Vital Signs Temp Pulse Resp BP Pulse Ox O2 Del Method 05/08/24 08:43 36.5 C 88 18 134/84 94 Room Air
[2024-05-08] MEDS: POLYETHYLENE (MIRALAX) 17 GM PACK PO SCH (10:16)
[2024-05-08] MEDS: bisacodyL 10 MG SUPP PR STA (10:18)
[2024-05-08] MEDS: MAGNESIUM HYDROXIDE SUSP 30 ML UDC PO ONE (10:18)
--- NOTE | 2024-05-08 10:43 | Orthopedic Progress Note ---
Date of Service May 08, 2024 Assessment & Plan (1) Delirium: Plan: At this point the patient is very confused. This is at a higher level of confusion that was signed out to me by his attending. I am concerned that he may have a urinary tract infection due to a longstanding indwelling catheter. We are going to have medicine take a look at him and rule out causes of acute delirium other than being in the hospital. We are to hold off on his discharge today until the problems worked up further. Admission and Anticipated Discharge Date Admission Date: May 05, 2024 Subjective Patient was seen bedside in room 379. He is very confused this morning. He thinks he is in [place]. He does not know why he is in the hospital. He has told me that he was found without shoes or shirt in the rain. He is postop day #3 status post L3-4 decompression and fusion. He is not complaining of leg pain. Physical Exam Physical Exam: On exam he is very confused. He is able to move his extremities to gravity. His dressing is clean dry and intact his calves are supple and nontender. His abdomen supple and nontender. Results & Data Vital Signs (Past 12 Hours) Vital Signs Temp Pulse Resp BP Pulse Ox O2 Del Method 05/08/24 08:43 36.5 C 88 18 134/84 94 Room Air
--- NOTE | 2024-05-08 13:26 | CT Scan Report ---
HISTORY: Altered mental status. TECHNIQUE: CT of the head without contrast. Images are presented in axial, sagittal, and coronal reformats. COMPARISON: None. FINDINGS: No evidence of intracranial hemorrhage, abnormal extra axial fluid collection, mass effect, or midline shift. Mild volume loss and presumed chronic microvascular ischemic changes. Intracranial atherosclerotic vascular calcifications.Ventricular caliber is appropriate. Fourth ventricle is midline. Basal cisterns are patent.Naik-white differentiation is maintained. Globes and orbits are unremarkable.Soft tissues about the skull base and scalp are unremarkable.Paranasal sinuses and mastoid air cells are clear. No calvarial fracture. IMPRESSION: 1. No acute intracranial findings. 2. Mild volume loss and presumed chronic microvascular ischemic changes. Electronically signed by Noé Yang 05-08-2024 13:24 PM
[2024-05-08 15:06] LABS: Basophils # (auto) 0.03 K/uL (0.00-0.20); Basophils % (auto) 0.2 %; Hematocrit (blood only) 42.2 % (42.0-52.0); Hemoglobin 14.9 g/dl (14.0-18.0); Immature Granulocytes % (auto) 0.6 %; Lymphocytes # (auto) 1.48 K/uL (1.20-3.40); Lymphocytes % (auto) 9.5 %; Mean Corpuscular Hemoglobin 30.4 pg (25.0-34.0); Mean Corpuscular Hgb Conc 35.3 g/dL (32.0-36.0); Mean Corpuscular Volume 86.1 fL (80.0-100.0); Monocytes # (auto) 0.77 K/uL (0.11-0.59); Monocytes % (auto) 4.9 %; Neutrophils # (auto) 13.21 K/uL (1.40-6.50); Neutrophils % (auto) 84.8 %; Platelet Count 313 K/uL (130-400); RDW Coefficient of Variation 11.9 % (11.5-14.5); White Blood Count 15.59 K/ul (4.8-10.8)
[2024-05-08 15:23] LABS: BUN Creatinine Ratio 34.3 (10-20); Calcium 9.7 mg/dl (8.6-10.3); Creatinine Clr Calc Pharmacy 81.6 ml/min; Potassium 4.9 mmol/L (3.5-5.1)
[2024-05-08 16:12] LABS: Appearance Urine Turbid (Clear); Bacteria Urine Automated None Seen (None Seen); Bilirubin Urine Negative (Negative); Blood Urine 3+ (Negative); Cast Urine Automated 0-2 /lpf (0-2); Color Urine Yellow; Epithelial Cell Urine Auto 0-2 /hpf (0-2); Glucose Urine UA Negative (Negative); Ketones Urine Negative (Negative); Leukocyte Esterase Urine Trace (Negative); Nitrite Urine Negative (Negative); Protein Urine Negative (Negative); RBC Urine Automated >20 /hpf (0-2); Specific Gravity Urine 1.013 (1.000-1.030); Urobilinogen Urine Negative (Negative); WBC Urine Automated 0-5 /hpf (0-5)
[2024-05-08] MEDS: MELATONIN 3 MG TAB PO SCH (20:20)
[2024-05-09] MEDS: OLANZapine 10 MG/2.1 ML SDV IM STA ×2 (02:00→02:54)
[2024-05-09] MEDS ORDERED: LORazepam 2 MG/1 ML VIAL IV STA (06:49)
--- NOTE | 2024-05-09 10:21 | Orthopedic Progress Note ---
Date of Service May 09, 2024 Assessment & Plan (1) Delirium: Plan: At this time we have held all narcotic and benzodiazepines. CT of the head was negative. Hopefully his delirium state will resolve soon. Will continue physical therapy. Admission and Anticipated Discharge Date Admission Date: May 05, 2024 Subjective Patient is confused to place and time. He did however complete physical therapy. Physical Exam Physical Exam: On exam he is responsive. He has good strength testing. Results & Data Vital Signs (Past 12 Hours) Vital Signs Temp Pulse Resp BP Pulse Ox O2 Del Method 05/09/24 07:01 36.6 C 68 18 166/91 H 96 Room Air
--- NOTE | 2024-05-09 14:27 | Hospitalist Progress Note ---
Date of Service May 09, 2024 Assessment & Plan (1) S/P spinal surgery: (2) Lumbar disc herniation with radiculopathy: Plan: S/P decompression and fusion L3-L4 by Dr Leung on 05/05/2024 EBL# 100ml Pain management per ortho Wound management per ortho Continue PT/OT DVT prophylaxis per ortho Incentive spirometry Monitor H&H for acute blood loss anemia; pre-op Hgb: 16 Post-op Hb of 14.5g/dl Post-op Delirium Patient has sundowning and episode of delirium on May 07 and Could likely be related with medication, recent surgery, steroids Hydroxyzine, Ativan, IV opioids discontinued CT head without contrast obtained; no acute finding Urinalysis does not show sign of infection Recommend bowel regimen, frequent reorientation Delirium precautions (3) History of CAD (coronary artery disease): Plan: S/P stent Denies chest pain, shortness of breath Aspirin and Plavix have been on hold preop, resume when able per ortho spine Continue carvedilol, pravastatin Hold lisinopril for now Follows with Cardiology (4) History of TIA (transient ischemic attack): Plan: Aspirin and Plavix have been on hold preop. Resume when able per ortho spine Continue carvedilol, pravastatin (5) Hypertension: Plan: Hold lisinopril Continue carvedilol (6) BPH (benign prostatic hyperplasia): Plan: 04/27/2024 and Crouch catheter was placed secondary to urinary retention Seen by [facility] urology on 05/04/2024 and it was recommended Crouch catheter stay in place for now until follow-up with urology. Patient was started on tamsulosin DVT Prophylaxis SCDs Disposition per primary service Follows with Roro Landis PA for routine care Discussed with family at bedside. Time spent evaluating patient, direct bedside care, chart review, placing orders, interpretation of diagnostic studies, discussion with consultants, patient, and family members, as well as other required patient management activities is 50 minutes Please note the above document was generated using voice recognition software. It may contain grammatical, syntax or spelling errors. Any formal questions or concerns about the content, text or information contained within the body of this dictation should be directly addressed to the provider for clarification Admission and Anticipated Discharge Date Admission Date: May 05, 2024 Subjective patient seen and examined at bedside with family He appears to be confused; able to answer few of the questions. Pain seems to be well-controlled Afebrile and vital signs are stable Review of Systems Review of Systems: Unobtainable due to mental health condition Physical Exam Physical Exam: Constitutional: Oriented to self; requiring frequent redirection. Respiratory: normal respiratory effort, lungs clear to auscultation, no wheeze, rales, rhonchi. Normal insp/exp effort, no accessory muscle use Cardiovascular: RRR, no murmur, no edema Vessels: no JVD or carotid bruit Chest: normal inspection of chest Abdomen: normal bowel sounds, soft, nontender, no hepatosplenomegaly Musculoskeletal: dressing in place; clean/dry/intact Neurologic: PERRL, EOMI, accommodation nl, no face palsy, no dysarthria ; grossly moves all extremities Results & Data Results & Data Vital Signs (Past 12 Hours) Vital Signs Temp Pulse Resp BP Pulse Ox O2 Del Method 05/09/24 07:01 36.6 C 68 18 166/91 H 96 Room Air
[2024-05-09] MEDS: HALOPERIDOL LACTATE 5 MG/ML 1 ML VIAL IM STA (21:30)
[2024-05-10 07:47] LABS: Basophils # (auto) 0.04 K/uL (0.00-0.20); Basophils % (auto) 0.2 %; Eosinophils # (auto) 0.04 K/uL (0.00-0.50); Eosinophils % (auto) 0.2 %; Hematocrit (blood only) 41.4 % (42.0-52.0); Hemoglobin 14.5 g/dl (14.0-18.0); Immature Granulocytes # (auto) 0.24 K/uL (0.01-0.20); Immature Granulocytes % (auto) 1.4 %; Lymphocytes # (auto) 2.62 K/uL (1.20-3.40); Lymphocytes % (auto) 15.2 %; Mean Corpuscular Hemoglobin 30.5 pg (25.0-34.0); Mean Corpuscular Volume 87.2 fL (80.0-100.0); Mean Platelet Volume 9.2 fL (9.4-12.4); Monocytes # (auto) 1.62 K/uL (0.11-0.59); Monocytes % (auto) 9.4 %; Neutrophils # (auto) 12.69 K/uL (1.40-6.50); Neutrophils % (auto) 73.6 %; Platelet Count 322 K/uL (130-400); RDW Coefficient of Variation 11.8 % (11.5-14.5); Red Blood Count 4.75 M/uL (4.70-6.10); White Blood Count 17.25 K/ul (4.8-10.8)
[2024-05-10 07:58] LABS: BUN Creatinine Ratio 30.3 (10-20); Calcium 8.8 mg/dl (8.6-10.3); Creatinine Clr Calc Pharmacy 75.2 ml/min; Potassium 4.1 mmol/L (3.5-5.1)
--- NOTE | 2024-05-10 09:56 | Hospitalist Progress Note ---
Date of Service May 10, 2024 Assessment & Plan (1) S/P spinal surgery: (2) Lumbar disc herniation with radiculopathy: Plan: S/P decompression and fusion L3-L4 by Dr Leung on 05/05/2024 EBL# 100ml Pain management per ortho Wound management per ortho Continue PT/OT DVT prophylaxis per ortho Incentive spirometry Monitor H&H for acute blood loss anemia; pre-op Hgb: 16 Post-op Hb of 14.5g/dl Post-op Delirium Patient has sundowning and episode of delirium on May 07 and Could likely be related with medication, recent surgery, steroids Hydroxyzine, Ativan, IV opioids discontinued CT head without contrast obtained; no acute finding Urinalysis does not show sign of infection Recommend bowel regimen, frequent reorientation Delirium precautions (3) History of CAD (coronary artery disease): Plan: S/P stent Denies chest pain, shortness of breath Aspirin and Plavix have been on hold preop, resume when able per ortho spine Continue carvedilol, pravastatin Hold lisinopril for now Follows with Cardiology (4) History of TIA (transient ischemic attack): Plan: Aspirin and Plavix have been on hold preop. Resume when able per ortho spine Continue carvedilol, pravastatin (5) Hypertension: Plan: Hold lisinopril Continue carvedilol (6) BPH (benign prostatic hyperplasia): Plan: 04/27/2024 and Crouch catheter was placed secondary to urinary retention Seen by [facility] urology on 05/04/2024 and it was recommended Crouch catheter stay in place for now until follow-up with urology. Patient was started on tamsulosin DVT Prophylaxis SCDs Disposition per primary service Follows with Indu GILLIAM, DARWIN Read for routine care Discussed with family at bedside on 05/09 Time spent evaluating patient, direct bedside care, chart review, placing orders, interpretation of diagnostic studies, discussion with consultants, patient, and family members, as well as other required patient management activities is 50 minutes Please note the above document was generated using voice recognition software. It may contain grammatical, syntax or spelling errors. Any formal questions or concerns about the content, text or information contained within the body of this dictation should be directly addressed to the provider for clarification Admission and Anticipated Discharge Date Admission Date: May 05, 2024 Subjective Patient seen and examined at bedside. He still appears to be delirious. Vitals signs and labwork unremarkable Review of Systems Review of Systems: Unobtainable due to cognitive status Physical Exam Physical Exam: Constitutional: Oriented to self; requiring frequent redirection. Respiratory: normal respiratory effort, lungs clear to auscultation, no wheeze, rales, rhonchi. Normal insp/exp effort, no accessory muscle use Cardiovascular: RRR, no murmur, no edema Vessels: no JVD or carotid bruit Chest: normal inspection of chest Abdomen: normal bowel sounds, soft, nontender, no hepatosplenomegaly Musculoskeletal: dressing in place; clean/dry/intact Neurologic: PERRL, EOMI, accommodation nl, no face palsy, no dysarthria ; grossly moves all extremities Results & Data Results & Data Vital Signs (Past 12 Hours) Vital Signs Temp Pulse Resp BP Pulse Ox O2 Del Method 05/10/24 08:44 36.8 C 82 18 153/80 H 96 Room Air
--- NOTE | 2024-05-10 12:33 | Orthopedic Progress Note ---
Date of Service May 10, 2024 Assessment & Plan (1) Delirium: Plan: At this time he is in a continue with physical therapy but we will await his delirium to resolve. Admission and Anticipated Discharge Date Admission Date: May 05, 2024 Subjective Patient still delirious. Not oriented. Has been tolerating therapy. Ambulating to the restroom with assistance. Physical Exam Physical Exam: On exam patient currently in bed. He is not oriented. Neurologically intact. Results & Data Vital Signs (Past 12 Hours) Vital Signs Temp Pulse Resp BP Pulse Ox O2 Del Method 05/10/24 08:44 36.8 C 82 18 153/80 H 96 Room Air
[2024-05-10] MEDS: LACTATED RINGER'S 500 ML IV ONE (15:20)
--- NOTE | 2024-05-11 11:07 | Orthopedic Progress Note ---
Date of Service May 11, 2024 Assessment & Plan (1) Delirium: Plan: At this time we will continue physical therapy. Will refrain from any narcotic or or sedatives. Hopefully be able to discharge home tomorrow. Admission and Anticipated Discharge Date Admission Date: May 05, 2024 Subjective Patient's pain is well-controlled. Progressing slowly with therapy today. Physical Exam Physical Exam: On exam he is mentally much more acute. He has good strength testing. But struggling with balance when walking. Results & Data Vital Signs (Past 12 Hours) Vital Signs Temp Pulse Resp BP Pulse Ox O2 Del Method 05/11/24 07:35 36.5 C 86 18 144/78 H 94 Room Air
--- NOTE | 2024-05-11 14:03 | Hospitalist Progress Note ---
Date of Service May 11, 2024 Assessment & Plan (1) S/P spinal surgery: (2) Lumbar disc herniation with radiculopathy: Plan: S/P decompression and fusion L3-L4 by Dr Leung on 05/05/2024 EBL# 100ml Pain management per ortho Wound management per ortho Continue PT/OT DVT prophylaxis per ortho Incentive spirometry Monitor H&H for acute blood loss anemia; pre-op Hgb: 16 Post-op Hb of 14.5g/dl Post-op Delirium Patient has sundowning and episode of delirium on May 07 and Could likely be related with medication, recent surgery, steroids Hydroxyzine, Ativan, IV opioids discontinued CT head without contrast obtained; no acute finding Urinalysis does not show sign of infection Recommend bowel regimen, frequent reorientation Delirium precautions Mentation improved to baseline on 05/11/2024 (3) History of CAD (coronary artery disease): Plan: S/P stent Denies chest pain, shortness of breath Aspirin and Plavix have been on hold preop, resume when able per ortho spine Continue carvedilol, pravastatin on lisinopril as well Follows with Cardiology (4) History of TIA (transient ischemic attack): Plan: Aspirin and Plavix have been on hold preop. Resume when able per ortho spine Continue carvedilol, pravastatin (5) Hypertension: Plan: Continue carvedilol and lisinopril (6) BPH (benign prostatic hyperplasia): Plan: 04/27/2024 and Crouch catheter was placed secondary to urinary retention Seen by [facility] urology on 05/04/2024 and it was recommended Crouch catheter stay in place for now until follow-up with urology. Patient was starte d on tamsulosin DVT Prophylaxis SCDs Disposition per primary service Follows with Roro Landis PA for routine care Please note the above document was generated using voice recognition software. It may contain grammatical, syntax or spelling errors. Any formal questions or concerns about the content, text or information contained within the body of this dictation should be directly addressed to the provider for clarification Admission and Anticipated Discharge Date Admission Date: May 05, 2024 Subjective Patient mentation much improved compared to previous days. He is alert and oriented to time and place. No significant events overnight Review of Systems Review of Systems: All systems reviewed & are unremarkable except as noted in Subjective Physical Exam Physical Exam: Constitutional:Alert and oriented to self, place and time. Not in distress Respiratory: normal respiratory effort, lungs clear to auscultation, no wheeze, rales, rhonchi. Normal insp/exp effort, no accessory muscle use Cardiovascular: RRR, no murmur, no edema Vessels: no JVD or carotid bruit Chest: normal inspection of chest Abdomen: normal bowel sounds, soft, nontender, no hepatosplenomegaly Musculoskeletal: dressing in place; clean/dry/intact Neurologic: PERRL, EOMI, accommodation nl, no face palsy, no dysarthria ; grossly moves all extremities Results & Data Results & Data Vital Signs (Past 12 Hours) Vital Signs Temp Pulse Resp BP Pulse Ox O2 Del Method 05/11/24 07:35 36.5 C 86 18 144/78 H 94 Room Air
[2024-05-12 08:09] LABS: BUN Creatinine Ratio 55.3 (10-20); Calcium 8.4 mg/dl (8.6-10.3); Creatinine Clr Calc Pharmacy 75.2 ml/min; Potassium 4.3 mmol/L (3.5-5.1)
--- NOTE | 2024-05-12 09:37 | Orthopedic Progress Note ---
Date of Service May 12, 2024 Assessment & Plan (1) Lumbar disc herniation with radiculopathy: Plan: At this time patient is planning for rehab placement. He still has shades of delirium but is functional. He is cleared for discharge to rehab if bed available. Admission and Anticipated Discharge Date Admission Date: May 05, 2024 Subjective Patient denying any leg pain. States he is comfortable. Physical Exam Physical Exam: Patient is currently in bed. He is easily arousable. Cooperative with exam. Neurologically intact. Results & Data Vital Signs (Past 12 Hours) Vital Signs Temp Pulse Resp BP BP Pulse Ox O2 Del Method 05/12/24 07:18 36.6 C 81 18 107/68 94 Room Air 05/11/24 21:51 36.8 C 89 16 128/78 94 Room Air 05/11/24 21:50 Room Air
--- NOTE | 2024-05-12 13:03 | Hospitalist Progress Note ---
Date of Service May 12, 2024 Assessment & Plan (1) S/P spinal surgery: (2) Lumbar disc herniation with radiculopathy: Plan: S/P decompression and fusion L3-L4 by Dr Leung on 05/05/2024 EBL# 100ml Pain management per ortho Wound management per ortho Continue PT/OT DVT prophylaxis per ortho Incentive spirometry Monitor H&H for acute blood loss anemia; pre-op Hgb: 16 Post-op Hb of 14.5g/dl Post-op Delirium Patient has sundowning and episode of delirium on May 07 and Could likely be related with medication, recent surgery, steroids Hydroxyzine, Ativan, IV opioids discontinued CT head without contrast obtained; no acute finding Urinalysis does not show sign of infection Recommend bowel regimen, frequent reorientation Delirium precautions Mentation improved to baseline on 05/11/2024, appears stable today. (3) History of CAD (coronary artery disease): Plan: S/P stent Denies chest pain, shortness of breath Aspirin and Plavix have been on hold preop, resume when able per ortho spine Continue carvedilol, pravastatin on lisinopril as well Follows with Cardiology (4) History of TIA (transient ischemic attack): Plan: Aspirin and Plavix have been on hold preop. Resume when able per ortho spine Continue carvedilol, pravastatin (5) Hypertension: Plan: Continue carvedilol and lisinopril (6) BPH (benign prostatic hyperplasia): Plan: 04/27/2024 and Crouch catheter was placed secondary to urinary retention Seen by [facility] urology on 05/04/2024 and it was recommended Crouch catheter stay in place for now until follow-up with urology. Patient was started on tamsulosin DVT Prophylaxis SCDs Disposition per primary service, [facility]. Follows with Indu GILLIAM, DARWIN Read for routine care Please note the above document was generated using voice recognition software. It may contain grammatical, syntax or spelling errors. Any formal questions or concerns about the content, text or information contained within the body of this dictation should be directly addressed to the provider for clarification Admission and Anticipated Discharge Date Admission Date: May 05, 2024 Subjective Patient appears mentating appropriately He is alert and oriented to time and place. No significant events overnight Physical Exam Physical Exam: Constitutional:Alert and oriented to self, place and time. Not in distress Respiratory: normal respiratory effort, lungs clear to auscultation, no wheeze, rales, rhonchi. Normal insp/exp effort, no accessory muscle use Cardiovascular: RRR, no murmur, no edema Vessels: no JVD or carotid bruit Chest: normal inspection of chest Abdomen: normal bowel sounds, soft, nontender, no hepatosplenomegaly Musculoskeletal: dressing in place; clean/dry/intact Neurologic: PERRL, EOMI, accommodation nl, no face palsy, no dysarthria ; grossly moves all extremities Results & Data Results & Data Vital Signs (Past 12 Hours) Vital Signs Temp Pulse Resp BP Pulse Ox O2 Del Method 05/12/24 07:18 36.6 C 81 18 107/68 94 Room Air
[2024-05-12 17:14] LABS: Hematocrit (blood only) 40.6 % (42.0-52.0); Hemoglobin 13.9 g/dl (14.0-18.0)
--- NOTE | 2024-05-13 08:20 | Orthopedic Progress Note ---
Date of Service May 13, 2024 Assessment & Plan (1) Lumbar disc herniation with radiculopathy: Plan: At this time he is awaiting placement for rehab. He is safe for discharge per Ortho. Admission and Anticipated Discharge Date Admission Date: May 05, 2024 Subjective Patient is changes pain is well-controlled. He is walking without difficulty. Physical Exam Physical Exam: On exam he is alert. Good strength testing.
[2024-05-13 10:07] LABS: Hematocrit (blood only) 38.5 % (42.0-52.0); Hemoglobin 13.3 g/dl (14.0-18.0); Mean Corpuscular Hemoglobin 30.8 pg (25.0-34.0); Mean Corpuscular Hgb Conc 34.5 g/dL (32.0-36.0); Mean Corpuscular Volume 89.1 fL (80.0-100.0); Mean Platelet Volume 9.4 fL (9.4-12.4); Platelet Count 273 K/uL (130-400); RDW Coefficient of Variation 12.2 % (11.5-14.5); RDW Standard Deviation 40.2 fL (36.4-46.3); Red Blood Count 4.32 M/uL (4.70-6.10); White Blood Count 13.13 K/ul (4.8-10.8)
--- NOTE | 2024-05-13 15:11 | Hospitalist Progress Note ---
Date of Service May 13, 2024 Assessment & Plan (1) S/P spinal surgery: (2) Lumbar disc herniation with radiculopathy: Plan: S/P decompression and fusion L3-L4 by Dr Leung on 05/05/2024 EBL# 100ml Pain management per ortho Wound management per ortho Continue PT/OT DVT prophylaxis per ortho Incentive spirometry Monitor H&H for acute blood loss anemia; pre-op Hgb: 16 Post-op Hb of 14.5g/dl Post-op Delirium Patient has sundowning and episode of delirium on May 07 and Could likely be related with medication, recent surgery, steroids Hydroxyzine, Ativan, IV opioids discontinued CT head without contrast obtained; no acute finding Urinalysis does not show sign of infection Recommend bowel regimen, frequent reorientation Delirium precautions Mentation improved to baseline on 05/11/2024, appears stable today. (3) History of CAD (coronary artery disease): Plan: S/P stent Denies chest pain, shortness of breath Aspirin and Plavix have been on hold preop, resume when able per ortho spine Continue carvedilol, pravastatin on lisinopril as well Follows with Cardiology (4) History of TIA (transient ischemic attack): Plan: Aspirin and Plavix have been on hold preop. Resume when able per ortho spine Continue carvedilol, pravastatin (5) Hypertension: Plan: Continue carvedilol and lisinopril (6) BPH (benign prostatic hyperplasia): Plan: 04/27/2024 and Crouch catheter was placed secondary to urinary retention Seen by [facility] urology on 05/04/2024 and it was recommended Crouch catheter stay in place for now until follow-up with urology. Patient was started on tamsulosin DVT Prophylaxis SCDs Disposition per primary service, likely dc to snf vs Home w/ HH. Follows with Roro Landis PA for routine care Please note the above document was generated using voice recognition software. It may contain grammatical, syntax or spelling errors. Any formal questions or concerns about the content, text or information contained within the body of this dictation should be directly addressed to the provider for clarification Admission and Anticipated Discharge Date Admission Date: May 05, 2024 Subjective Patient appears mentating appropriately He is alert and oriented to time and place. No significant events overnight Physical Exam Physical Exam: Constitutional:Alert and oriented to self, place and time. Not in distress Respiratory: normal respiratory effort, lungs clear to auscultation, no wheeze, rales, rhonchi. Normal insp/exp effort, no accessory muscle use Cardiovascular: RRR, no murmur, no edema Vessels: no JVD or carotid bruit Chest: normal inspection of chest Abdomen: normal bowel sounds, soft, nontender, no hepatosplenomegaly Musculoskeletal: dressing in place; clean/dry/intact Neurologic: PERRL, EOMI, accommodation nl, no face palsy, no dysarthria ; grossly moves all extremities Crouch in with light yellow urine in bag noted. Results & Data Results & Data Vital Signs (Past 12 Hours) Vital Signs Temp Pulse Resp BP Pulse Ox O2 Del Method 05/13/24 08:20 36.5 C 82 18 111/70 93 Room Air 05/13/24 07:16 Room Air
[2024-05-13 15:52] VITALS: RESP 20
[2024-05-14 07:34] VITALS: BP 121/73; PULSE 84; TEMP 97.7; O2SAT 95
--- NOTE | 2024-05-14 09:39 | Orthopedic Progress Note ---
Date of Service May 14, 2024 Assessment & Plan (1) Lumbar disc herniation with radiculopathy: Plan: This time we are trying to arrange home health and discharge home today. Admission and Anticipated Discharge Date Admission Date: May 05, 2024 Subjective Patient is up and ambulating. He is feeling much better. Physical Exam Physical Exam: Patient is alert and oriented. He is extra strength testing. Results & Data Vital Signs (Past 12 Hours) Vital Signs Temp Pulse Resp BP Pulse Ox O2 Del Method 05/14/24 07:34 36.5 C 84 20 121/73 95 Room Air
--- NOTE | 2024-05-14 14:59 | Hospitalist Progress Note ---
Date of Service May 14, 2024 Assessment & Plan (1) S/P spinal surgery: (2) Lumbar disc herniation with radiculopathy: Plan: S/P decompression and fusion L3-L4 by Dr Leung on 05/05/2024 EBL# 100ml Pain management per ortho Wound management per ortho Continue PT/OT DVT prophylaxis per ortho Incentive spirometry Monitor H&H for acute blood loss anemia; pre-op Hgb: 16 Post-op Hb of 14.5g/dl Post-op Delirium Patient has sundowning and episode of delirium on May 07 and Could likely be related with medication, recent surgery, steroids Hydroxyzine, Ativan, IV opioids discontinued CT head without contrast obtained; no acute finding Urinalysis does not show sign of infection Recommend bowel regimen, frequent reorientation Delirium precautions Mentation improved to baseline on 05/11/2024, appears stable today. (3) History of CAD (coronary artery disease): Plan: S/P stent Denies chest pain, shortness of breath Aspirin and Plavix have been on hold preop, resume when able per ortho spine Continue carvedilol, pravastatin on lisinopril as well Follows with Cardiology (4) History of TIA (transient ischemic attack): Plan: Aspirin and Plavix have been on hold preop. Resume when able per ortho spine Continue carvedilol, pravastatin (5) Hypertension: Plan: Continue carvedilol and lisinopril (6) BPH (benign prostatic hyperplasia): Plan: 04/27/2024 and Crouch catheter was placed secondary to urinary retention Seen by [facility] urology on 05/04/2024 and it was recommended Crouch catheter stay in place for now until follow-up with urology. Patient was started on tamsulosin DVT Prophylaxis SCDs Disposition per primary service, likely dc to snf vs Home w/ HH. Follows with Roro Landis PA for routine care Please note the above document was generated using voice recognition software. It may contain grammatical, syntax or spelling errors. Any formal questions or concerns about the content, text or information contained within the body of this dictation should be directly addressed to the provider for clarification Admission and Anticipated Discharge Date Admission Date: May 05, 2024 Subjective Patient appears mentating appropriately He is alert and oriented to time and place. No significant events overnight Physical Exam Physical Exam: Constitutional:Alert and oriented to self, place and time. Not in distress Respiratory: normal respiratory effort, lungs clear to auscultation, no wheeze, rales, rhonchi. Normal insp/exp effort, no accessory muscle use Cardiovascular: RRR, no murmur, no edema Vessels: no JVD or carotid bruit Chest: normal inspection of chest Abdomen: normal bowel sounds, soft, nontender, no hepatosplenomegaly Musculoskeletal: dressing in place; clean/dry/intact Neurologic: PERRL, EOMI, accommodation nl, no face palsy, no dysarthria ; grossly moves all extremities Crouch in with light yellow urine in bag noted. Results & Data Results & Data Vital Signs (Past 12 Hours) Vital Signs Temp Pulse Resp BP Pulse Ox O2 Del Method 05/14/24 11:24 Room Air 05/14/24 07:34 36.5 C 84 20 121/73 95 Room Air
== END 2024-05-14 14:56 | disposition home health service (06) | DRG 402 ==
LOC: ASU 12:13 → 3N 14:31